=== PATIENT | male | born 1955 | race Caucasian/White ===

== ENCOUNTER 2017-07-12 07:00 | Outpatient (RCR) | payer OTHER, SELFPAY ==
--- NOTE | 2017-06-14 08:32 | HP.PTEVAL_ITS ---
Patient's Visit Information ESTRELLITA CARPENTER is a 61 year old M referred to Physical Therapy by SAMUEL Cervantes.MARTY with a diagnosis of Left TKR. Date of Evaluation: 06/14/17 Physical Therapist: Sarah Garcia - Visit Plan Frequency: 2-3x /Week Duration: 4 Weeks Plan: Focus on LE ROM and strength with functional mobility - Subjective Subjective: Left Total Knee Replacement 05/29/[address] López at [facility]. Went in as an outpatient. One story home with a basement- 3 stairs to enter with a BRAXTON- with no problems. Had home therapy at was doing the stairs as exercise. Back to driving- fully I before surgery. Still has problems getting his left sock on. Retired- likes to garden, bike on trials, Identified boat. Reports pain in the knee today is about a 3/10. Worst: 3/10 Agg: not icing on time, movement, exercises to make it straight. Dull and achy pain around the whole knee. Eases: ice, Tylenol Best: 0/10. Sleep: getting better but still challenging- starts out in the bed and then goes to the chair. Moves around during sleep. Pain radiates down the into the right dickson. PMHx/Meds: no changes. - Objective Posture: FH, RS, Increased kyphosis. Gait: slightly deviated- decreased stance on the left LE- decreased heel/toe pattern. Stairs: asc/desc 8 recip with 2 HR - and poor control. HR/TR: able. SLS: WS but unable to SLS. Observation: incision healing well- no s/s of infection. Steri-strips still intact. ROM:5- 90 degrees. Strength: Ankle: 5/5, Knee:4+/5, Hip: 4/5 - Goals Goal 1:: Patient will be I with HEP and progression Goal Time Frame: 4-6 Weeks Goal 2:: Patient will asc/desc 8 recip with 1 HR Goal Time Frame: 4-6 Weeks Goal 3:: Patient will ambulate >300 feet with a normalized gait pattern Goal Time Frame: 4-6 Weeks Goal 4:: Patient will demo 0-115 degrees Goal Time Frame: 4-6 Weeks - Rehabilitation Potential Physical Therapy Diagnosis: Patient presents with hypomobility- he has decreased ROM, strength and muscular endurance leading to poor posture and increased pain Rehabilitation Potential: Good - Anticipated Interventions Patient/Client Instruction: Educate patient on: Benefits of Fitness Program For the Purpose of:: To improve performance and independence with ADL's Therapeutic Exercise to Include: Strength training, Endurance training, Balance training, Agility training, Body mechanics, Postural training, Flexibilty training, Gait and locomotor training, Passive ROM, Active ROM, Dynamic Lumbar Stabilization For the Purpose of:: To improve muscle performance and motor function TENS: Yes Cryotherapy (ice pack, ice massage): Yes Thermo therapy (hot pack): Yes Ultrasound (thermal/non thermal): No Vasopneumatic device: Yes For the Purpose of:: To decrease pain, To decrease swelling/inflammation Thank you for the opportunity to evaluate your patient. For Medicare and Medicare HMO plans, please review the plan of care and approve it. It will need to be FAXED BACK to us at [phone] for Medicare purposes. Please let me know if there are questions or concerns regarding this plan of care. Physician Signature: Date:
--- NOTE | 2017-07-12 07:32 | HP.PTDCSUM_ITS ---
HP - PT D/C Summary It has been my pleasure to treat ESTRELLITA CARPENTER under orders from SAMUEL Cervantes, PA.MARTY for the diagnosis of Left TKR for a total of 13 visit(s) . Discharge Date: Please see the following information for a summary of their discharge status. - Subjective Subjective: Patient reports that he saw Dr. López yesterday who was happy with his ROM. He reports that he has no problems with ADL's. He thinks he may have to do the right knee. - Pain Left Knee Pain Intensity (Out of 10): 0 - Overall Improvement % Improvement: 90 - Objective Objective/Function: Posture: good. Gait: no deviation. Stairs: asc/desc 8 recip with no HR. SLS: 15 seconds. HR/TR: WNL. Palpation: not tender. rom:0- 122 degrees. Strength: 5/5 throughout - Goals Goal 1:: Patient will be I with HEP and progression Goal Progress: Goal Met Goal 2:: Patient will asc/desc 8 recip with 1 HR Goal Progress: Goal Met Goal 3:: Patient will ambulate >300 feet with a normalized gait pattern Goal Progress: Goal Met Goal 4:: Patient will demo 0-115 degrees Goal Progress: Goal Met - Plan Plan: Discharge - D/C Information If there are questions or concerns regarding this patient's physical therapy, please feel free to call me at [phone]. Thank you for the referral of this patient. Sincerely, Sarah Garcia
== END 2017-07-12 19:00 | disposition home or self-care (01) ==
LOC: PT 07:00
PROVIDERS: Family Provider Family Medicine; PCP Family Medicine; Visit Provider Physician Assistant Surgical
DX: Z96.652 Presence of left artificial knee joint (principal); Z47.1 Aftercare following joint replacement surgery
CPT/HCPCS: 97110; 97161; 97530

== ENCOUNTER → 2018-04-21 09:39 | Outpatient (CLI) | payer OTHER, SELFPAY ==
[2017-05-29 06:47] VITALS: BMI 41.7
[2018-04-21 12:34] LABS: Anion Gap 10 (5-15); BUN 20 mg/dL (7-18); BUN/Creat Ratio 19.2 RATIO (10-20); Calcium,Total 8.8 mg/dL (8.5-10.1); Chloride 103 mmol/L (98-107); Cholesterol 201 mg/dL (200); Creatinine, Serum 1.04 mg/dL (0.70-1.30); EST Glomerular Filtration Rate 77 mL/min (>60); Est Glom Filt Rate - Afr Amer 93 mL/min (>60); Glucose 92 mg/dL (74-106); High Density Lipoprotein 40 mg/dL; Potassium 4.7 mmol/L (3.5-5.1); Sodium Level 140 mmol/L (136-145); Triglycerides 165 mg/dL; Very Low Density Lipoprotein 33 mg/dL (5-40)
== END ==
PROVIDERS: Family Provider Family Medicine; PCP Family Medicine; Visit Provider Family Medicine
DX: I10 Essential (primary) hypertension (principal); Z12.5 Encounter for screening for malignant neoplasm of prostate
CPT/HCPCS: 36415; 80048; 80061; 84153; G0103

== ENCOUNTER → 2018-10-20 | Outpatient (CLI) | payer OTHER, SELFPAY ==
[2017-05-29 06:47] VITALS: BMI 41.7
[2018-10-20 12:35] LABS: Anion Gap 7 (5-15); BUN 23 mg/dL (7-18); BUN/Creat Ratio 20.5 RATIO (10-20); Chloride 103 mmol/L (98-107); Creatinine, Serum 1.12 mg/dL (0.70-1.30); EST Glomerular Filtration Rate 70 mL/min (>60); Est Glom Filt Rate - Afr Amer 85 mL/min (>60); Glucose 103 mg/dL (74-106); Potassium 4.2 mmol/L (3.5-5.1); Sodium Level 136 mmol/L (136-145)
== END | disposition home or self-care (01) ==
LOC: MFPLAB 09:53
PROVIDERS: Family Provider Family Medicine; PCP Family Medicine; Visit Provider Family Medicine
DX: I10 Essential (primary) hypertension (principal)
CPT/HCPCS: 36415; 80048

== ENCOUNTER → 2019-04-29 09:54 | Outpatient (CLI) | payer OTHER, SELFPAY ==
[2017-05-29 06:47] VITALS: BMI 41.7
[2019-04-29 13:06] LABS: Anion Gap 8 (5-15); BUN 24 mg/dL (7-18); BUN/Creat Ratio 20.3 RATIO (10-20); Calcium,Total 8.9 mg/dL (8.5-10.1); Chloride 103 mmol/L (98-107); Cholesterol 185 mg/dL (200); Creatinine, Serum 1.18 mg/dL (0.70-1.30); EST Glomerular Filtration Rate 66 mL/min (>60); Est Glom Filt Rate - Afr Amer 80 mL/min (>60); Glucose 98 mg/dL (74-106); High Density Lipoprotein 35 mg/dL; PSA,Total - Annual Screen 1.52 ng/mL (0.00-4.00); Potassium 4.3 mmol/L (3.5-5.1); Sodium Level 136 mmol/L (136-145); Triglycerides 168 mg/dL; Very Low Density Lipoprotein 34 mg/dL (5-40)
== END ==
PROVIDERS: Family Provider Family Medicine; PCP Family Medicine; Referring Provider Family Medicine; Visit Provider Family Medicine
DX: I10 Essential (primary) hypertension (principal); Z12.5 Encounter for screening for malignant neoplasm of prostate
CPT/HCPCS: 36415; 80048; 80061; 84153; G0103

== ENCOUNTER 2019-05-15 16:54 | Inpatient (IN) | payer OTHER, SELFPAY ==
[2019-05-15] VITALS (7 sets, daily range): BP systolic 107–151; BP diastolic 70–97; PULSE 71–85; RESP 14–20; TEMP 36.9–37; O2SAT 93–96; BMI 40.3; BMI 40.1
--- NOTE | 2019-05-15 17:45 | EKG12_ITS ---
Test Reason : SOB Blood Pressure : / mmHG Vent. Rate : 074 BPM Atrial Rate : 074 BPM P-R Int : 176 ms QRS Dur : 094 ms QT Int : 372 ms P-R-T Axes : 029 004 037 degrees QTc Int : 412 ms Normal sinus rhythm Normal ECG Confirmed by DAKOTA MARIANO, NAGA ([id number]), scientific editor RANJEET CRAIG ([id number]) on 05/18/2019 12:51:15 PM Referred By: PREM Confirmed By:NAGA DUNCAN MD
--- NOTE | 2019-05-15 17:48 | RAD_ITS ---
STUDY: X-RAY CHEST REASON FOR EXAM: Male, 63 years old. Chest pain and cough. TECHNIQUE: Single AP portable view of the chest. COMPARISON: None. FINDINGS: The lungs are hypoexpanded. There is minimal bibasilar atelectasis. There is no demonstrated pleural abnormality. Normal size heart. Normal mediastinum and isabella. Normal visualized pulmonary arteries. Normal visualized aortic arch and descending thoracic aorta. There are diffuse degenerative changes of the visualized thoracic spine. There is degenerative osteoarthritis of the bilateral shoulders. There is no demonstrated abnormality of the visualized soft tissue structures of the upper abdomen. RAD/Chest 1 View (Portable) IMPRESSION: Degenerative changes, as described above. No demonstrated acute cardiopulmonary process. Electronically Signed: Donell Griffith DO at 18:06 EST Tel [phone], Service support ,
--- NOTE | 2019-05-15 17:55 | ED.DCSUM_ITS ---
- ER Visit Summary Date of Service: 05/15/19 Chief Complaint: Shortness of breath History of Present Illness: The patient is a 63 M with shortness of breath x4 days. He has had a dry cough. He has shortness of breath that is worsened with ambulation. He tried albuterol at home. He scheduled to see Dr. Vargas on May 25. He states he is in the process of being worked up for possible asthma. He is scheduled to have pulmonary function test later this month. He is not a smoker. He denies chest pain. Denies fever. Denies other complaints. Physical Examination: Vitals are stable. Patient is afebrile. Alert no acute distress. HEENT exam is unremarkable. Neck is supple. Lungs are wheezing diffusely Heart is regular rate and rhythm. Abdomen is soft nontender nondistended. Extremities are unremarkable. Skin is warm and dry. No focal neurologic deficit. Remainder of exam is unremarkable. Emergency Department Course and Treatment: Patient was given albuterol, Atrovent aerosols. He was given Solu-Medrol IV. CBC shows white count 12.6. Chemistries unremarkable. Liver lipase are normal. Troponin is negative. Chest x-ray shows no acute process. Influenza negative. On reevaluation, patient continues to have diffuse wheezing. Will discuss with the hospitalist for admission. Disposition: Admission Impression: Dyspnea, reactive airway disease This note was generated with [employer] dictation software. It may contain incorrect words, spelling, and punctuation that were not noted in review of the chart prior to signing ED Disposition - Plan for ED Patient: Referrals: Marlene Hutchison MD [Primary Care Provider] -
[2019-05-15] MEDS: MethylPREDNISolone 125 MG/2 ML Vial IV (18:01)
[2019-05-15] MEDS: Ipratropium/Albuterol Sulfate 3 ML AMPUL.NEB INHALATION (18:06)
[2019-05-15] MEDS: Albuterol 2.5 MG/3 ML VIAL.NEB. INHALATION (18:06)
[2019-05-15 18:10] LABS: Absolute Lymphocyte Count 1.98 X10^3/uL (0.83-4.51); Absolute Neutrophil Count 7.9 X10^3/uL (2.0-7.7); Basophil# 0.05 X10^3/uL; Basophil% 0.4 % (0-1); Eosinophil# 1.76 X10^3/uL; Hematocrit 46.8 % (40-54); Hemoglobin 15.1 g/dL (13.0-16.5); Lymphocyte # 1.98 X10^3/ul (4.0); Lymphocyte % 15.7 % (19-41); Mean Corp Hgb Conc 32.3 g/dL (32-36); Mean Corpuscular Hgb 27.8 pg (27.0-32.0); Mean Corpuscular Volume 86.2 fL (80-94); Mean Platelet Vol. 10.7 fl (6.2-12.0); Monocyte# 0.83 X10^3/uL; Monocyte% 6.6 % (0-10); NRBC Flagged by Analyzer 0 % (0-5); Neutrophil # 7.91 X10^3/uL (2.7-7.7); Neutrophil % 62.7 % (47-70); Platelet Count 233 K/mm3 (150-450); Red Blood Count 5.43 M/mm3 (4.6-6.2); White Blood Count 12.6 K/mm3 (4.4-11.0)
[2019-05-15 18:21] LABS: ALB/GLOB Ratio 0.9 RATIO (0.9-2.4); AST(SGOT) 19 U/L (15-37); Alanine Aminotransfer ALT/SGPT 28 U/L (16-61); Albumin, Serum 3.8 g/dL (3.2-5.0); Alkaline Phosphatase 79 U/L (45-117); Anion Gap 7 (5-15); BUN 18 mg/dL (7-18); BUN/Creat Ratio 14.8 RATIO (10-20); Calcium,Total 9.1 mg/dL (8.5-10.1); Chloride 104 mmol/L (98-107); Creatinine, Serum 1.22 mg/dL (0.70-1.30); EST Glomerular Filtration Rate 63 mL/min (>60); Est Glom Filt Rate - Afr Amer 77 mL/min (>60); Estimated Creatinine Clearance 61.17 ml/min; Globulin 4.2 g/dL (2.2-4.2); Glucose 96 mg/dL (74-106); Lipase 118 U/L (73-393); Potassium 3.9 mmol/L (3.5-5.1); Sodium Level 139 mmol/L (136-145)
--- NOTE | 2019-05-15 19:15 | HP.PCM_ITS ---
Problem List (1) Asthma Status: Acute History of Present Illness Date of Admission: 05/15/19 Chief Complaint: sob The patient is a 63 year old M with a significant history of hypertension; sleep apnea and who is being worked-up for probable asthma presenting with 1 day history of persistent shortness of breath. Associated symptoms is dry cough. Patient has been wheezing for about 1 month. Patient follows up with Dr. Ndiaye, healthcare sales representative and is scheduled to have outpatient lung function test on May 25 2019 Past Medical History Medical History: Medical History (Last Updated 05/15/19 @ 20:20 by Jorge Joe MD) HTN (hypertension) I10 Allergies shellfish derived Allergy (Verified 05/15/19 16:57) Shortness of breath Home Medications: Ambulatory Orders Medication Instructions Recorded Meloxicam [Mobic] 15 mg PO DAILY 05/16/17 Metoprolol Succinate [Toprol Xl] 100 mg PO DAILY 05/16/17 Montelukast [Singulair] 10 mg PO DAILY PRN PRN 05/16/17 Omeprazole 20 mg PO DAILY 05/16/17 Pyridoxine HCl [Vitamin B-6] 100 mg PO DAILY PRN PRN 05/16/17 Ramipril [Altace] 5 mg PO QHS 05/16/17 hydroCHLOROthiazide 12.5 mg PO DAILY 05/16/17 [Hydrochlorothiazide] [place]-3 Fatty Acids [Fish Oil] 500 mg PO DAILY 05/15/19 Surgical History: appendectomy, - - Knee replacement; and elbow surgery Lives: Spouse/ Significant Other Smoking Status: Never smoker Alcohol: Occasional - *Family History Maternal History Items: Heart Disease - His mother had a pacemaker Paternal History Items: Cancer - His father had prostate cancer and lung cancer Review of Systems Constitutional: Reports: Anorexia. Denies: Chills, Fever, Weight Change HEENT: Denies: Head Aches, Sinus Congestion, Sinus Drainage Cardiovascular: Denies: Chest Pain, Palpitations Respiratory: Reports: Cough, Shortness of Breath, Wheezing. Denies: Sputum production Gastrointestinal: Denies: Abdominal Pain, Nausea, Vomiting Genitourinary: Denies: Dysuria Musculoskeletal: Denies: Joint Pain, Joint Tenderness Skin: Denies: Rash, Wounds Neurological: Denies: Numbness, Tingling, Focal weakness Psychiatric: Denies: Anxiety, Depression, Homicidal Ideations, Suicidal Ideations Hematologic/ Lymphatic: Denies: Easy Bruising, Easy Bleeding VTE Information - Inpt Only VTE Present on Admission: No VTE Mechan Device Prophylaxis: None VTE Pharm Prophylaxis ordered?: Yes Patient Problems: Active and Suspected Problems (Last Updated 05/15/19 @ 20:20 by Jorge Joe MD) Asthma (Acute) - Physical Exam Vitals/I&O's: Vital Signs Temp Pulse Resp BP Pulse Ox 98.6 F 82 14 138/84 H 96 05/15/19 19:03 05/15/19 19:03 05/15/19 19:03 05/15/19 19:03 05/15/19 19:03 Oxygen Flow Rate (L/min) 2 Oxygen Delivery Method Room Air Weight: 123.8 kg Body Mass Index (BMI) 40.3 General: Alert, Oriented x3, Cooperative HEENT: Atraumatic, PERRLA, EOMI, Normocephalic Neck: Supple, No JVD, Negative Carotid Bruits Lungs: No rales, Rhonchi, Wheezes Cardiovascular: Regular rate, No murmurs Abdomen: Bowel Sounds Present, Soft, Non Tender Extremities: No edema, Capillary Refill Less than 3 Seconds Skin: No rashes, No breakdown Musculoskeletal: No Tenderness to Palpation of Joints or Extremities Neurological: Cranial nerves II-XII grossly intact Psych/Mental Status: Normal Affect, Appropriate Microbiology Past 72 Hours 05/15/19 18:10 Mucosa - Nose Influenza Types A,B Direct FA (SEBASTIEN) - Final Laboratory Results 05/15/19 17:04: WBC 12.6 H, RBC 5.43, Hgb 15.1, Hct 46.8, MCV 86.2, MCH 27.8, MCHC 32.3, RDW Std Deviation 44.0 H, RDW Coeff of Gavino 14.0, Plt Count 233, MPV 10.7, Immature Gran % (Auto) 0.600, Neut % (Auto) 62.7, Lymph % (Auto) 15.7 L, Clayton % (Auto) 6.6, Eos % (Auto) 14.0 H, Baso % (Auto) 0.4, Absolute Neuts (auto) 7.9 H, Absolute Lymphs (auto) 1.98, Nucleated RBC % 0 05/15/19 17:04: Sodium 139, Potassium 3.9, Chloride 104, Carbon Dioxide 28.0, Anion Gap 7, BUN 18, Creatinine 1.22, Estim Creat Clear Calc 61.17, Est GFR (MDRD) Af Amer 77, Est GFR (MDRD) Non-Af 63, BUN/Creatinine Ratio 14.8, Glucose 96, Calcium 9.1, Total Bilirubin 0.50, AST 19, ALT 28, Alkaline Phosphatase 79, Troponin I < 0.015, Total Protein 8.0, Albumin 3.8, Globulin 4.2, Albumin/Globulin Ratio 0.9, Lipase 118 Assessment/Plan All Active Problems (Last Updated 05/15/19 @ 20:20 by Jorge Joe MD) Asthma (Acute) The patient is a 63 year old M with a significant history of hypertension; sleep apnea and who is being worked-up for probable asthma presenting with 1 day history of persistent shortness of breath; dry cough and wheezing consistent with likely acute exacerbation of asthma. Acute exacerbation of asthma CXR independently reviewed confirms no acute cardiopulmonary process Scheduled DuoNeb Albuterol as needed Received Solu-Medrol 125 mg IV at the emergency department. Continue patient on Solu-Medrol IV. Mucinex for cough Oxygen as needed Rapid influenza screen was negative. If patient develops fever or chills consider respiratory pathogen panel. Singular continued Monitor BMP and CBC Hypertension On presentation blood pressure was not within goal Hydrochlorothiazide and ramipril continued GERD Omeprazole continued Obstructive sleep apnea Home CPAP continued DVT Prophylaxis Subcutaneous Lovenox Code Visit Inpatient E&M: 22388 Init Hosp L3
[2019-05-15] MEDS: guaiFENesin 1,200 MG Tablet 1200 MG PO (20:56)
[2019-05-15] MEDS: Ramipril 5 MG Capsule PO (21:23)
[2019-05-15] MEDS: Acetaminophen 325 MG Tablet 650 MG PO (21:23)
[2019-05-15] MEDS: Montelukast 10 MG Tablet PO (21:23)
[2019-05-16] VITALS (15 sets, daily range): BP systolic 127–150; BP diastolic 70–81; PULSE 66–93; RESP 16–20; TEMP 36.4–36.7; O2SAT 91–99
[2019-05-16] MEDS: 0.9% Saline Lock 10 ML Syringe IV ×3 (05:38→21:22)
[2019-05-16] MEDS: Acetaminophen 325 MG Tablet 650 MG PO (05:38)
[2019-05-16] MEDS: Ipratropium/Albuterol Sulfate 3 ML AMPUL.NEB INHALATION ×4 (07:17→19:33)
[2019-05-16] MEDS: Pantoprazole Sodium 20 MG Tablet PO (08:29)
[2019-05-16] MEDS: Meloxicam 15 MG Tablet PO (08:29)
[2019-05-16] MEDS: guaiFENesin 1,200 MG Tablet 1200 MG PO ×2 (08:30→21:22)
[2019-05-16] MEDS: Enoxaparin 40 MG/0.4 ML Syringe SC (08:30)
[2019-05-16] MEDS: hydroCHLOROthiazide 12.5mg 12.5 MG PO (08:30)
[2019-05-16] MEDS: Metoprolol(XL)Succ 100 MG Tablet PO (08:30)
[2019-05-16 08:46] LABS: Absolute Lymphocyte Count 1.07 X10^3/uL (0.83-4.51); Absolute Neutrophil Count 13.6 X10^3/uL (2.0-7.7); Basophil# 0.02 X10^3/uL; Basophil% 0.1 % (0-1); Eosinophil# 0.06 X10^3/uL; Eosinophils% 0.4 % (0-5); Hematocrit 46.3 % (40-54); Hemoglobin 14.7 g/dL (13.0-16.5); Lymphocyte # 1.07 X10^3/ul (4.0); Lymphocyte % 7.1 % (19-41); Mean Corp Hgb Conc 31.7 g/dL (32-36); Mean Corpuscular Hgb 26.9 pg (27.0-32.0); Mean Corpuscular Volume 84.8 fL (80-94); Mean Platelet Vol. 10.5 fl (6.2-12.0); Monocyte% 0.7 % (0-10); NRBC Flagged by Analyzer 0 % (0-5); Neutrophil # 13.63 X10^3/uL (2.7-7.7); Neutrophil % 90.9 % (47-70); Platelet Count 248 K/mm3 (150-450); RBC Distribution Width CV 14.1 % (11.6-14.6); RBC Distribution Width SD 43.5 fl (35.1-43.9); Red Blood Count 5.46 M/mm3 (4.6-6.2)
[2019-05-16 09:08] LABS: Anion Gap 7 (5-15); BUN 20 mg/dL (7-18); BUN/Creat Ratio 16.8 RATIO (10-20); Calcium,Total 8.9 mg/dL (8.5-10.1); Chloride 101 mmol/L (98-107); Creatinine, Serum 1.19 mg/dL (0.70-1.30); EST Glomerular Filtration Rate 65 mL/min (>60); Est Glom Filt Rate - Afr Amer 79 mL/min (>60); Estimated Creatinine Clearance 62.71 ml/min; Glucose 199 mg/dL (74-106); Potassium 3.9 mmol/L (3.5-5.1); Sodium Level 134 mmol/L (136-145)
[2019-05-16] MEDS: Albuterol 2.5 MG/3 ML VIAL.NEB. INHALATION ×2 (10:00→17:23)
--- NOTE | 2019-05-16 15:07 | PCM.PN.HOSP ---
Patient Problems: Active and Suspected Problems (Last Updated 05/15/19 @ 20:20 by Jorge Joe MD) Asthma (Acute) Reason for Visit: The patient has history of asthma. Patient is still wheezing and has persistent cough although feels better than yesterday. Objective: Hemodynamically stable. No hypoxia or tachypnea. Patient walked around the nursing station but he persistent cough with bilateral lower rib pain due to coughing. Vitals/I&O's: Vital Signs Temp Pulse Resp BP Pulse Ox 98.1 F 81 17 150/74 H 91 05/16/19 08:23 05/16/19 11:05 05/16/19 11:05 05/16/19 08:23 05/16/19 08:42 Oxygen Flow Rate (L/min) 2 Oxygen Delivery Method Room Air Weight: 271 lb 6.224 oz Body Mass Index (BMI) 40.1 General: Alert, Oriented x3, Cooperative HEENT: Atraumatic, PERRLA, EOMI, Normocephalic Neck: Supple, No JVD, Negative Carotid Bruits Lungs: Diminished - Entry bilaterally diffusely diminished., Rhonchi, Wheezes Cardiovascular: Regular rate, Regular Rhythm, Normal S1, Normal S2, No murmurs Abdomen: Bowel Sounds Present, Soft, Non Tender, Non-Distended Extremities: No edema, Capillary Refill Less than 3 Seconds Skin: No rashes, No breakdown Musculoskeletal: No Tenderness to Palpation of Joints or Extremities Neurological: Cranial nerves II-XII grossly intact, Deep Tendon Reflexes 2+/4 and Symmetrical, Neuro grossly intact Psych/Mental Status: Normal Affect, Appropriate Microbiology Past 72 Hours 05/15/19 18:10 Mucosa - Nose Influenza Types A,B Direct FA (SEBASTIEN) - Final Laboratory Results 05/15/19 17:04: WBC 12.6 H, RBC 5.43, Hgb 15.1, Hct 46.8, MCV 86.2, MCH 27.8, MCHC 32.3, RDW Std Deviation 44.0 H, RDW Coeff of Gavino 14.0, Plt Count 233, MPV 10.7, Immature Gran % (Auto) 0.600, Neut % (Auto) 62.7, Lymph % (Auto) 15.7 L, [place] % (Auto) 6.6, Eos % (Auto) 14.0 H, Baso % (Auto) 0.4, Absolute Neuts (auto) 7.9 H, Absolute Lymphs (auto) 1.98, Nucleated RBC % 0 05/15/19 17:04: Sodium 139, Potassium 3.9, Chloride 104, Carbon Dioxide 28.0, Anion Gap 7, BUN 18, Creatinine 1.22, Estim Creat Clear Calc 61.17, Est GFR (MDRD) Af Amer 77, Est GFR (MDRD) Non-Af 63, BUN/Creatinine Ratio 14.8, Glucose 96, Calcium 9.1, Total Bilirubin 0.50, AST 19, ALT 28, Alkaline Phosphatase 79, Troponin I < 0.015, Total Protein 8.0, Albumin 3.8, Globulin 4.2, Albumin/Globulin Ratio 0.9, Lipase 118 05/16/19 08:25: WBC 15.0 H, RBC 5.46, Hgb 14.7, Hct 46.3, MCV 84.8, MCH 26.9 L, MCHC 31.7 L, RDW Std Deviation 43.5, RDW Coeff of Gavino 14.1, Plt Count 248, MPV 10.5, Immature Gran % (Auto) 0.800, Neut % (Auto) 90.9 H, Lymph % (Auto) 7.1 L, [place] % (Auto) 0.7, Eos % (Auto) 0.4, Baso % (Auto) 0.1, Absolute Neuts (auto) 13.6 H, Absolute Lymphs (auto) 1.07, Nucleated RBC % 0 05/16/19 08:25: Sodium 134 L, Potassium 3.9, Chloride 101, Carbon Dioxide 26.0, Anion Gap 7, BUN 20 H, Creatinine 1.19, Estim Creat Clear Calc 62.71, Est GFR (MDRD) Af Amer 79, Est GFR (MDRD) Non-Af 65, BUN/Creatinine Ratio 16.8, Glucose 199 H, Calcium 8.9 Current Medications Acetaminophen (Tylenol) 650 mg PO Q6H PRN PRN PRN Reason: Pain Score 1-3/Temp > 100.7 F Last Admin: 05/16/19 05:38 Dose: 650 mg Documented by: Albuterol Sulfate (Ventolin Aerosols) 2.5 mg INHALATION Q2H PRN PRN PRN Reason: Shortness of Breath/Wheezing Last Admin: 05/16/19 10:00 Dose: 2.5 mg Documented by: Albuterol/Ipratropium (Duoneb) 3 ml INHALATION Q4HWA.RT [facility] Last Admin: 05/16/19 07:17 Dose: 3 ml Documented by: Enoxaparin Sodium (Lovenox) 40 mg SC DAILY [facility] Last Admin: 05/16/19 08:30 Dose: 40 mg Documented by: Glucagon () 1 mg IM .X1 PRN PRN Reason: Hypoglycemia Guaifenesin (Mucinex) 1,200 mg PO BID [facility] Last Admin: 05/16/19 08:30 Dose: 1,200 mg Documented by: Hydrochlorothiazide () 12.5 mg PO DAILY [facility] Last Admin: 05/16/19 08:30 Dose: 12.5 mg Documented by: Dextrose (Dextrose 10%-Water) 250 mls @ 999 mls/hr IV .Q16M PRN; Protocol PRN Reason: HYPOGLYCEMIA Meloxicam (Mobic) 15 mg PO DAILY [facility] Last Admin: 05/16/19 08:29 Dose: 15 mg Documented by: Methylprednisolone (Solu-Medrol) 40 mg IV Q8 [facility] Last Admin: 05/16/19 05:38 Dose: 40 mg Documented by: Metoprolol Succinate (Toprol Xl (Beta Renetta)) 100 mg PO DAILY [facility] Last Admin: 05/16/19 08:30 Dose: 100 mg Documented by: Montelukast Sodium (Singulair) 10 mg PO DAILY PRN PRN PRN Reason: ALLERGIES Last Admin: 05/15/19 21:23 Dose: 10 mg Documented by: Ondansetron HCl (Zofran) 4 mg IV Q8H PRN PRN PRN Reason: NAUSEA/VOMITING Pantoprazole Sodium (Protonix) 20 mg PO DAILY [facility] Last Admin: 05/16/19 08:29 Dose: 20 mg Documented by: Ramipril (Altace) 5 mg PO QHS [facility] Last Admin: 05/15/19 21:23 Dose: 5 mg Documented by: Sodium Chloride () 10 - 40 ml IV UD PRN PRN Reason: SALINE FLUSH Last Admin: 05/16/19 05:38 Dose: 10 ml Documented by: Medical Necessity - Tobacco Use Smoking Status: Never smoker Tobacco Use: Non-smoker Assessment/Plan All Active Problems (Last Updated 01/03/20 @ 20:20 by Jorge Joe MD) Asthma (Acute) The patient is a 63 year old M with a significant history of hypertension; sleep apnea, follows Dr. Vargas was admitted for persistent shortness of breath, dry cough and wheezing consistent with asthma exacerbation 1. Acute exacerbation of asthma: Patient is being admitted in [facility] floor. On a scheduled DuoNeb, albuterol as needed, IV Solu-Medrol, Mucinex, incentive spirometry and chest physiotherapy. Singulair continued. Influenza test negative. Chest x-ray no acute finding. Hypertension: On HCTZ 12.5 mg daily, ramipril and metoprolol. Blood pressure is controlled. GERD Omeprazole continued Obstructive sleep apnea Home CPAP continued DVT Prophylaxis Subcutaneous Lovenox Clinical Impression(s) from Imaging Studies Chest X-Ray 05/15/19 17:48 IMPRESSION: Degenerative changes, as described above. No demonstrated acute cardiopulmonary process. Microbiology Past 72 Hours 05/15/19 18:10 Mucosa - Nose Influenza Types A,B Direct FA (SEBASTIEN) - Final Laboratory Results 05/15/19 17:04: WBC 12.6 H, RBC 5.43, Hgb 15.1, Hct 46.8, MCV 86.2, MCH 27.8, MCHC 32.3, RDW Std Deviation 44.0 H, RDW Coeff of Gavino 14.0, Plt Count 233, MPV 10.7, Immature Gran % (Auto) 0.600, Neut % (Auto) 62.7, Lymph % (Auto) 15.7 L, Glades % (Auto) 6.6, Eos % (Auto) 14.0 H, Baso % (Auto) 0.4, Absolute Neuts (auto) 7.9 H, Absolute Lymphs (auto) 1.98, Nucleated RBC % 0 05/15/19 17:04: Sodium 139, Potassium 3.9, Chloride 104, Carbon Dioxide 28.0, Anion Gap 7, BUN 18, Creatinine 1.22, Estim Creat Clear Calc 61.17, Est GFR (MDRD) Af Amer 77, Est GFR (MDRD) Non-Af 63, BUN/Creatinine Ratio 14.8, Glucose 96, Calcium 9.1, Total Bilirubin 0.50, AST 19, ALT 28, Alkaline Phosphatase 79, Troponin I < 0.015, Total Protein 8.0, Albumin 3.8, Globulin 4.2, Albumin/Globulin Ratio 0.9, Lipase 118 05/16/19 08:25: WBC 15.0 H, RBC 5.46, Hgb 14.7, Hct 46.3, MCV 84.8, MCH 26.9 L, MCHC 31.7 L, RDW Std Deviation 43.5, RDW Coeff of Gavino 14.1, Plt Count 248, MPV 10.5, Immature Gran % (Auto) 0.800, Neut % (Auto) 90.9 H, Lymph % (Auto) 7.1 L, Glades % (Auto) 0.7, Eos % (Auto) 0.4, Baso % (Auto) 0.1, Absolute Neuts (auto) 13.6 H, Absolute Lymphs (auto) 1.07, Nucleated RBC % 0 05/16/19 08:25: Sodium 134 L, Potassium 3.9, Chloride 101, Carbon Dioxide 26.0, Anion Gap 7, BUN 20 H, Creatinine 1.19, Estim Creat Clear Calc 62.71, Est GFR (MDRD) Af Amer 79, Est GFR (MDRD) Non-Af 65, BUN/Creatinine Ratio 16.8, Glucose 199 H, Calcium 8.9 Active Medications Acetaminophen (Tylenol) 650 mg PO Q6H PRN PRN PRN Reason: Pain Score 1-3/Temp > 100.7 F Last Admin: 05/16/19 05:38 Dose: 650 mg Documented by: Albuterol Sulfate (Ventolin Aerosols) 2.5 mg INHALATION Q2H PRN PRN PRN Reason: Shortness of Breath/Wheezing Last Admin: 05/16/19 10:00 Dose: 2.5 mg Documented by: Albuterol/Ipratropium (Duoneb) 3 ml INHALATION Q4HWA.RT [facility] Last Admin: 05/16/19 07:17 Dose: 3 ml Documented by: Enoxaparin Sodium (Lovenox) 40 mg SC DAILY [facility] Last Admin: 05/16/19 08:30 Dose: 40 mg Documented by: Glucagon () 1 mg IM .X1 PRN PRN Reason: Hypoglycemia Guaifenesin (Mucinex) 1,200 mg PO BID [facility] Last Admin: 05/16/19 08:30 Dose: 1,200 mg Documented by: Hydrochlorothiazide () 12.5 mg PO DAILY [facility] Last Admin: 05/16/19 08:30 Dose: 12.5 mg Documented by: Dextrose (Dextrose 10%-Water) 250 mls @ 999 mls/hr IV .Q16M PRN; Protocol PRN Reason: HYPOGLYCEMIA Meloxicam (Mobic) 15 mg PO DAILY [facility] Last Admin: 05/16/19 08:29 Dose: 15 mg Documented by: Methylprednisolone (Solu-Medrol) 40 mg IV Q8 [facility] Last Admin: 05/16/19 05:38 Dose: 40 mg Documented by: Metoprolol Succinate (Toprol Xl (Beta Renetta)) 100 mg PO DAILY [facility] Last Admin: 05/16/19 08:30 Dose: 100 mg Documented by: Montelukast Sodium (Singulair) 10 mg PO DAILY PRN PRN PRN Reason: ALLERGIES Last Admin: 05/15/19 21:23 Dose: 10 mg Documented by: Ondansetron HCl (Zofran) 4 mg IV Q8H PRN PRN PRN Reason: NAUSEA/VOMITING Pantoprazole Sodium (Protonix) 20 mg PO DAILY [facility] Last Admin: 05/16/19 08:29 Dose: 20 mg Documented by: Ramipril (Altace) 5 mg PO QHS [facility] Last Admin: 05/15/19 21:23 Dose: 5 mg Documented by: Sodium Chloride () 10 - 40 ml IV UD PRN PRN Reason: SALINE FLUSH Last Admin: 05/16/19 05:38 Dose: 10 ml Documented by: Code Visit Inpatient E&M: 87591 Subs Hosp L2
[2019-05-16] MEDS: Benzonatate 100 MG Capsule 200 MG PO ×2 (17:17→21:25)
[2019-05-16] MEDS: Montelukast 10 MG Tablet PO (17:19)
[2019-05-16] MEDS: Ramipril 5 MG Capsule PO (21:23)
[2019-05-17 03:00] VITALS: O2SAT 96
[2019-05-17 03:05] VITALS: BP 118/77; PULSE 59; RESP 16; TEMP 36.6; O2SAT 96
[2019-05-17 03:39] VITALS: PULSE 83; RESP 20
[2019-05-17] MEDS: Ipratropium/Albuterol Sulfate 3 ML AMPUL.NEB INHALATION (03:39)
[2019-05-17] MEDS: Benzonatate 100 MG Capsule 200 MG PO (05:33)
[2019-05-17 07:45] VITALS: O2SAT 95
[2019-05-17 08:30] VITALS: BP 137/76; PULSE 63; RESP 16; TEMP 36.4; O2SAT 95
[2019-05-17 09:51] VITALS: PULSE 63
[2019-05-17] MEDS: Pantoprazole Sodium 20 MG Tablet PO (09:51)
[2019-05-17] MEDS: Metoprolol(XL)Succ 100 MG Tablet PO (09:51)
[2019-05-17] MEDS: guaiFENesin 1,200 MG Tablet 1200 MG PO (09:51)
[2019-05-17] MEDS: hydroCHLOROthiazide 12.5mg 12.5 MG PO (09:51)
[2019-05-17] MEDS: Meloxicam 15 MG Tablet PO (09:51)
--- NOTE | 2019-05-17 11:27 | DCINST_ITS ---
- Discharge Diagnoses Current Active Problems: Current Active and Chronic Problems (Last Updated 05/15/19 @ 20:20 by Jorge Joe MD) Asthma (Acute) You will use the following diet at home:: Other - resume previous diet Your food should be the consistency of: Regular Your liquids should be the consistency of: Regular/Thin Discharge Activity: - - Avoid exposure to any strong smells such as bleach, cleaning products, strong colognes or perfumes, paint fumes and smoke of any kind. Avoid sudden exposure to cold air because this can cause bronchospasm. You may want to cover your mouth when you go outside in the winter. Avoid exposure to anyone who is sick with a cough or sore throat. Return to work on:: 05/20/19 May resume sexual activity in: No Restrictions Call your doctor if you observe: Fever of 101 or Higher, Shortness of breath, Dizziness, Fainting spells, Swelling in the ankles, Chest pain, Calf discomfort Instructions: Acute Bronchitis, Caring for Your Inhaler Additional Instructions: I have added another inhaler called Serevent. This contains a long acting bronchodilator and you will take 1 puff every 12 hours.......no more than this. This inhaler takes a few hours to kick in and should not be used if you are acutely short of breath. For wheezing and shortness of breath you will continue to use the Albuterol inhaler......2 puffs every 3-4 hours as needed for wheezing and shortness of breath. 2. IF the cough is productive do not suppress it......those secretions need to be coughed out and the cough is a good thing. If the cough is dry OR if the cough is keeping you up at night you can take 1-2 Tessalon Perles every 6-8 hours as needed. 3. Keep your appt with Dr. Vargas on the .....I will send Dr. Vargas and Dr. Hutchison a copy of the discharge summary I will be dictating to let them know what went on in the hospital. 4. You should take the Prednisone with food because sometimes it can irritate the stomach. Pending Tests on Discharge: none Allergies/Adverse Reactions: Allergies shellfish derived Allergy (Verified 05/15/19 16:57) Shortness of breath Medications to take at Discharge Meloxicam [Mobic] 15 mg PO DAILY 05/16/17 Metoprolol Succinate [Toprol Xl] 100 mg PO DAILY 05/16/17 Montelukast [Singulair] 10 mg PO DAILY PRN PRN 05/16/17 Omeprazole 20 mg PO DAILY 05/16/17 Pyridoxine HCl [Vitamin B-6] 100 mg PO DAILY PRN PRN 05/16/17 Ramipril [Altace] 5 mg PO QHS 05/16/17 hydroCHLOROthiazide [Hydrochlorothiazide] 12.5 mg PO DAILY 05/16/17 [place]-3 Fatty Acids [Fish Oil] 500 mg PO DAILY 05/15/19 Benzonatate [Tessalon Perle] 200 mg PO Q6H PRN PRN #28 cap 05/17/19 Guaifenesin [Mucinex] 1,200 mg PO BID #20 tab 05/17/19 Prednisone 10 mg PO UD #30 tab 05/17/19 Salmeterol [Serevent Diskus] 1 puff INHALATION Q12 #1 inhaler 05/17/19 The following prescriptions were given: Guaifenesin [Mucinex] 1,200 mg PO BID #20 tab Transmission Status: Pending to [id number] Prednisone 10 mg PO UD #30 tab Transmission Status: [facility]ending to [id number] Salmeterol [Serevent Diskus] 1 puff INHALATION Q12 #1 inhaler Transmission Status: [facility]ending [id number] Benzonatate [Tessalon Perle] 200 mg PO Q6H PRN PRN #28 cap PRN Reason: dry cough Prescription Printed Primary Care Physician: Marlene Hutchison MD [Primary Care Provider] - Please follow up with your Primary Care Physician in: 3-5 days Test Results: Test results from this visit will be discussed in further detail at your follow- up appointment, if applicable. Please Follow Up With: Bhavesh Vargas MD When: May 25...has an appt Proposed Discharge Date: 05/17/19
--- NOTE | 2019-05-17 11:38 | DS.PCM_ITS ---
Discharge Date and Diagnosis - Problem List Patient Problems: Active and Suspected Problems (Last Updated 05/15/19 @ 20:20 by Jorge Joe MD) Acute bronchospasm (Acute) Asthma (Suspected) Date of Admission: 05/15/19 Date of Discharge: 05/17/19 - Primary Discharge Diagnosis Active and Suspected Problems (Last Updated 05/15/19 @ 20:20 by Jorge Joe MD) Acute bronchospasm (Acute) Asthma (Suspected) - has never had PFT's Acute bronchitis - more likely than not viral - Secondary Discharge Diagnosis Hypertension Obesity GERD BIRD - uses CPAP Hospital Course and Treatment Imaging Results: Clinical Impression(s) from Imaging Studies Chest X-Ray 05/15/19 17:48 IMPRESSION: Degenerative changes, as described above. No demonstrated acute cardiopulmonary process. Electronically Signed: Donell Griffith DO at 18:06 EST Tel [phone], Service support , Microbiology 05/15/19 18:10 Mucosa - Nose Influenza Types A,B Direct FA (SEBASTIEN) - Final Negative none Operations: None Procedures: None Summary of Care Provided: The patient is a 63 year old M with a past medical history of hypertension, GERD, obstructive sleep apnea and obesity who presented to the emergency department at [facility] on 05/15/2019 planing of shortness of breath and cough. He has been seeing Dr. Vargas and is scheduled for PFT's on May 25. He is a life long non-smoker. Vital signs at presentation to the emergency room were temperature 98.6, pulse rate 85, blood pressure 151/97, respiratory rate 20 and he was 95% saturated on room air. White blood cell count was elevated at 12.6 and he had 14% eosinophils. Neutrophils were within normal limits. BMP was unremarkable. Troponin was less than 0.015. Chest x- ray showed no acute cardiopulmonary findings. He was admitted to the hospital with a diagnosis of acute exacerbation of presumed asthma. He was started on around the clock aerosolized bronchodilators, Mucinex and intravenous steroids. IS was ordered as well as PEP therapy. The cough is sometimes productive of green sputum but a sputum culture was not obtained. On 05/17/2019 the patient was afebrile. He had been afebrile for the duration of his hospital stay. He had made 26 laps around the floor on 05/16/2019 and tolerated this well. He denied shortness of breath. Pulse ox on room air was 95 to 97%. He was discharged home on a prednisone taper. He will continue to use his albuterol rescue inhaler for shortness of breath and wheezing. He was started on a Serevent inhaler and instructed to do 1 puff every 12 hours. He is going to follow-up with Dr. Hutchison in the office in 3 to 5 days and will keep his appointment with Dr. Vargas on May 25. With the increased eosinophils at admission I suspect the bronchospasm may be allergic in nature. He may need allergy testing. PHYSICAL EXAM: GENERAL: alert, oriented X 3, Cooperative, NAD ORAL: moist mucosa, no mucosal lesions NECK: No JVD, supple, trachea midline LUNGS: CTA, symmetric chest expansion, not tachypneic, no conversational dyspnea HEART: RRR, Normal S1 and S2, no rub, no gallop ABDOMEN: soft, NT, ND, BS present, no guarding with palpation EXTREMITIES: no edema, no cyanosis, no calf tenderness SKIN: No rashes, no breakdown NEUROLOGIC: no focal neurologic deficits PSYCH: appropriate, normal affect, pleasant This note was generated with Post[employer] dictation software. It may contain incorrect words, spelling, and punctuation that were not noted in checking the note before signing. Patient Problems: Active and Suspected Problems (Last Updated 05/15/19 @ 20:20 by Jorge Joe MD) Acute bronchospasm (Acute) Asthma (Suspected) - Physical Exam Vitals/I&O's: Vital Signs Temp Pulse Resp BP Pulse Ox 97.6 F L 63 16 137/76 H 95 05/17/19 08:30 05/17/19 09:51 05/17/19 08:30 05/17/19 08:30 05/17/19 08:30 Oxygen Flow Rate (L/min) 2 Oxygen Delivery Method Room Air Weight: 271 lb 6.224 oz Body Mass Index (BMI) 40.1 Intake and Output for Last 24 Hours 05/15/19 05/16/19 05/17/19 23:59 23:59 23:59 Intake Total 250 / 250 300 / 300 Balance 250 / 250 300 / 300 Microbiology Past 72 Hours 05/15/19 18:10 Mucosa - Nose Influenza Types A,B Direct FA (SEBASTIEN) - Final Current Medications Acetaminophen (Tylenol) 650 mg PO Q6H PRN PRN PRN Reason: Pain Score 1-3/Temp > 100.7 F Last Admin: 05/16/19 05:38 Dose: 650 mg Documented by: Albuterol Sulfate (Ventolin Aerosols) 2.5 mg INHALATION Q2H PRN PRN PRN Reason: Shortness of Breath/Wheezing Last Admin: 05/16/19 17:23 Dose: 2.5 mg Documented by: Albuterol/Ipratropium (Duoneb) 3 ml INHALATION Q4HWA.RT [facility] Last Admin: 05/17/19 07:45 Dose: Not Given Documented by: Benzonatate (Tessalon Perle) 200 mg PO TID [facility] Last Admin: 05/17/19 05:33 Dose: 200 mg Documented by: Enoxaparin Sodium (Lovenox) 40 mg SC DAILY [facility] Last Admin: 05/17/19 09:47 Dose: Not Given Documented by: Glucagon () 1 mg IM .X1 PRN PRN Reason: Hypoglycemia Guaifenesin (Mucinex) 1,200 mg PO BID [facility] Last Admin: 05/17/19 09:51 Dose: 1,200 mg Documented by: Hydrochlorothiazide () 12.5 mg PO DAILY [facility] Last Admin: 05/17/19 09:51 Dose: 12.5 mg Documented by: Dextrose (Dextrose 10%-Water) 250 mls @ 999 mls/hr IV .Q16M PRN; Protocol PRN Reason: HYPOGLYCEMIA Meloxicam (Mobic) 15 mg PO DAILY [facility] Last Admin: 05/17/19 09:51 Dose: 15 mg Documented by: Methylprednisolone (Solu-Medrol) 40 mg IV Q8 [facility] Last Admin: 05/17/19 05:33 Dose: 40 mg Documented by: Metoprolol Succinate (Toprol Xl (Beta Renetta)) 100 mg PO DAILY [facility] Last Admin: 05/17/19 09:51 Dose: 100 mg Documented by: Montelukast Sodium (Singulair) 10 mg PO DAILY PRN PRN PRN Reason: ALLERGIES Last Admin: 05/16/19 17:19 Dose: 10 mg Documented by: Ondansetron HCl (Zofran) 4 mg IV Q8H PRN PRN PRN Reason: NAUSEA/VOMITING Pantoprazole Sodium (Protonix) 20 mg PO DAILY [facility] Last Admin: 05/17/19 09:51 Dose: 20 mg Documented by: Ramipril (Altace) 5 mg PO QHS [facility] Last Admin: 05/16/19 21:23 Dose: 5 mg Documented by: Sodium Chloride () 10 - 40 ml IV UD PRN PRN Reason: SALINE FLUSH Last Admin: 05/16/19 21:22 Dose: 10 ml Documented by: Discharge Activity: - - Avoid exposure to any strong smells such as bleach, cleaning products, strong colognes or perfumes, paint fumes and smoke of any kind. Avoid sudden exposure to cold air because this can cause bronchospasm. You may want to cover your mouth when you go outside in the winter. Avoid exposure to anyone who is sick with a cough or sore throat. Return to work on:: 05/20/19 May resume sexual activity in: No Restrictions Call your doctor if you observe: Fever of 101 or Higher, Shortness of breath, Dizziness, Fainting spells, Swelling in the ankles, Chest pain, Calf discomfort Home Medications: Medications to take at Discharge Meloxicam [Mobic] 15 mg PO DAILY 05/16/17 Metoprolol Succinate [Toprol Xl] 100 mg PO DAILY 05/16/17 Montelukast [Singulair] 10 mg PO DAILY PRN PRN 05/16/17 Omeprazole 20 mg PO DAILY 05/16/17 Pyridoxine HCl [Vitamin B-6] 100 mg PO DAILY PRN PRN 05/16/17 Ramipril [Altace] 5 mg PO QHS 05/16/17 hydroCHLOROthiazide [Hydrochlorothiazide] 12.5 mg PO DAILY 05/16/17 [place]-3 Fatty Acids [Fish Oil] 500 mg PO DAILY 05/15/19 Benzonatate [Tessalon Perle] 200 mg PO Q6H PRN PRN #28 cap 05/17/19 Guaifenesin [Mucinex] 1,200 mg PO BID #20 tab 05/17/19 Prednisone 10 mg PO UD #30 tab 05/17/19 Salmeterol [Serevent Diskus] 1 puff INHALATION Q12 #1 inhaler 05/17/19 Following Prescrptions Were Given to Patient: Guaifenesin [Mucinex] 1,200 mg PO BID #20 tab Transmission Status: [id number] Prednisone 10 mg PO UD #30 tab Transmission Status: [id number] Salmeterol [Serevent Diskus] 1 puff INHALATION Q12 #1 inhaler Transmission Status: Pending to [id number] Benzonatate [Tessalon Perle] 200 mg PO Q6H PRN PRN #28 cap PRN Reason: dry cough Prescription Printed Primary Care Physician: Marlene Hutchison MD [Primary Care Provider] - Please follow up with your Primary Care Physician in: 3-5 days Please Follow Up With: Bhavesh Vargas MD When: May 25...has an appt Patient Instructions: Acute Bronchitis, Caring for Your Inhaler Minutes spent on discharge:: 30 Patient Condition:: Good Medical Necessity - Tobacco Use Smoking Status: Never smoker Tobacco Use: Non-smoker Meaningful Use Info Meaningful Use Diagnoses (Choose all that apply): None applicable Code Visit Inpatient E&M: 48122 Disch Hosp
== END 2019-05-17 12:47 | disposition home or self-care (01) | DRG 202 ==
LOC: ED 17:21 → MS3 20:29
PROVIDERS: Admitting Provider Hospitalist; Emergency Provider Emergency Medicine; Family Provider Family Medicine; PCP Family Medicine; Visit Provider Internal Medicine
DX: J20.8 Acute bronchitis due to other specified organisms (principal); Z68.41 Body mass index [BMI] 40.0-44.9, adult; J45.909 Unspecified asthma, uncomplicated; I10 Essential (primary) hypertension; G47.33 Obstructive sleep apnea (adult) (pediatric); E66.9 Obesity, unspecified; K21.9 Gastro-esophageal reflux disease without esophagitis
CPT/HCPCS: 36415; 71045; 80048; 80053; 83690; 84484; 85025; 87804; 93005; 94640; 94667; 94668; 99251; 99285; A4216; G0463

== ENCOUNTER → 2019-07-15 08:45 | Outpatient (CLI) | payer MEDICARE, OTHER, SELFPAY ==
[2019-05-15 20:22] VITALS: BMI 40.1
[2019-07-15 10:07] LABS: Absolute Lymphocyte Count 1.97 X10^3/uL (0.83-4.51); Basophil# 0.04 X10^3/uL; Basophil% 0.5 % (0-1); Eosinophils% 9.2 % (0-5); Hematocrit 45.6 % (40-54); Hemoglobin 14.7 g/dL (13.0-16.5); Lymphocyte # 1.97 X10^3/ul (4.0); Lymphocyte % 22.7 % (19-41); Mean Corp Hgb Conc 32.2 g/dL (32-36); Mean Corpuscular Hgb 27.7 pg (27.0-32.0); Mean Corpuscular Volume 85.9 fL (80-94); Mean Platelet Vol. 10.8 fl (6.2-12.0); Monocyte# 0.78 X10^3/uL; NRBC Flagged by Analyzer 0 % (0-5); Neutrophil # 5.03 X10^3/uL (2.7-7.7); Neutrophil % 57.8 % (47-70); Platelet Count 271 K/mm3 (150-450); RBC Distribution Width SD 43.5 fl (35.1-43.9); Red Blood Count 5.31 M/mm3 (4.6-6.2); White Blood Count 8.7 K/mm3 (4.4-11.0)
[2019-07-15 10:54] LABS: Hemoglobin A1c 5.5 % (4.2-6.3)
== END ==
PROVIDERS: PCP Family Medicine; Referring Provider Family Medicine; Visit Provider Family Medicine
DX: R73.9 Hyperglycemia, unspecified (principal); D72.1 Eosinophilia
CPT/HCPCS: 36415; 83036; 85025

== ENCOUNTER → 2019-11-04 10:52 | Outpatient (CLI) | payer MEDICARE, OTHER, SELFPAY ==
[2019-05-15 20:22] VITALS: BMI 40.1
[2019-11-04 13:03] LABS: Anion Gap 8 (5-15); BUN 26 mg/dL (7-18); BUN/Creat Ratio 24.8 RATIO (10-20); Calcium,Total 9.2 mg/dL (8.5-10.1); Chloride 106 mmol/L (98-107); Creatinine, Serum 1.05 mg/dL (0.70-1.30); EST Glomerular Filtration Rate 75 mL/min (>60); Est Glom Filt Rate - Afr Amer 91 mL/min (>60); Glucose 96 mg/dL (74-106); Potassium 4.4 mmol/L (3.5-5.1); Sodium Level 140 mmol/L (136-145)
== END ==
PROVIDERS: PCP Family Medicine; Visit Provider Family Medicine
DX: Z00.00 Encounter for general adult medical examination without abnormal findings (principal); I10 Essential (primary) hypertension
CPT/HCPCS: 36415; 80048

== ENCOUNTER → 2020-02-18 | Outpatient (CLI) | payer MEDICARE, OTHER, SELFPAY ==
[2019-05-15 20:22] VITALS: BMI 40.1
== END | disposition home or self-care (01) ==
LOC: LABSPEC 08:05
PROVIDERS: PCP Family Medicine; Referring Provider Family Medicine; Visit Provider Family Medicine
DX: R19.7 Diarrhea, unspecified (principal)
CPT/HCPCS: 87493

== ENCOUNTER → 2020-03-17 | Outpatient (CLI) | payer MEDICARE, OTHER, SELFPAY ==
[2019-05-15 20:22] VITALS: BMI 40.1
== END | disposition home or self-care (01) ==
PROVIDERS: PCP Family Medicine; Visit Provider Family Medicine
DX: R19.7 Diarrhea, unspecified (principal)
CPT/HCPCS: 87493; 87506

== ENCOUNTER → 2020-04-27 15:29 | Outpatient (CLI) | payer MEDICARE, OTHER, SELFPAY ==
[2019-05-15 20:22] VITALS: BMI 40.1
[2020-04-27 18:26] LABS: Anion Gap 5 (5-15); BUN 23 mg/dL (7-18); BUN/Creat Ratio 20.7 RATIO (10-20); Calcium,Total 9.1 mg/dL (8.5-10.1); Chloride 103 mmol/L (98-107); Creatinine, Serum 1.11 mg/dL (0.70-1.30); EST Glomerular Filtration Rate 71 mL/min (>60); Est Glom Filt Rate - Afr Amer 85 mL/min (>60); Glucose 81 mg/dL (74-106); Sodium Level 136 mmol/L (136-145)
== END ==
PROVIDERS: PCP Family Medicine; Referring Provider Family Medicine; Visit Provider Family Medicine
DX: I10 Essential (primary) hypertension (principal)
CPT/HCPCS: 36415; 80048

== ENCOUNTER → 2020-10-28 10:11 | Outpatient (CLI) | payer MEDICARE, OTHER, SELFPAY ==
[2019-05-15 20:22] VITALS: BMI 40.1
[2020-10-28 12:44] LABS: Microalbumin,Random Urine 5.4 mg/L (NO RANGE EST.); Microalbumin:Creatinine Ratio 5.5 mg/g CRE (<30 mg/g CRE)
[2020-10-28 12:53] LABS: AST(SGOT) 23 U/L (15-37); Alanine Aminotransfer ALT/SGPT 24 U/L (16-61); Anion Gap 7 (5-15); BUN 18 mg/dL (7-18); BUN/Creat Ratio 16.1 RATIO (10-20); Calcium,Total 8.8 mg/dL (8.5-10.1); Chloride 103 mmol/L (98-107); Cholesterol 174 mg/dL (200); Creatinine, Serum 1.12 mg/dL (0.70-1.30); EST Glomerular Filtration Rate 70 mL/min (>60); Est Glom Filt Rate - Afr Amer 84 mL/min (>60); Glucose 91 mg/dL (74-106); High Density Lipoprotein 35 mg/dL; PSA,Total - Annual Screen 2.09 ng/mL (0.00-4.00); Sodium Level 138 mmol/L (136-145); Triglycerides 109 mg/dL; Very Low Density Lipoprotein 22 mg/dL (5-40)
== END ==
PROVIDERS: PCP Family Medicine; Referring Provider Family Medicine; Visit Provider Family Medicine
DX: Z00.00 Encounter for general adult medical examination without abnormal findings (principal); I10 Essential (primary) hypertension; E78.00 Pure hypercholesterolemia, unspecified; Z12.5 Encounter for screening for malignant neoplasm of prostate
CPT/HCPCS: 36415; 80048; 80061; 82043; 82570; 84153; 84450; 84460; G0103

== ENCOUNTER → 2020-11-10 15:54 | Outpatient (CLI) | payer MEDICARE, OTHER, SELFPAY ==
[2019-05-15 20:22] VITALS: BMI 40.1
== END ==
PROVIDERS: PCP Family Medicine; Visit Provider Family Medicine
DX: N39.0 Urinary tract infection, site not specified (principal)
CPT/HCPCS: 87086

== ENCOUNTER 2021-07-07 09:30 | Outpatient (RCR) | payer MEDICARE, OTHER, SELFPAY ==
--- NOTE | 2021-06-06 09:43 | HP.PTEVAL_ITS ---
Patient's Visit Information ESTRELLITA CARPENTER is a 65 year old M referred to Physical Therapy by Dr. Jamal López MD with a diagnosis of SCIATICA,RIGHT SIDE, INTERVERTEBRAL DISC DEGENERATION,LUMABR,LEFT KNEE OA. Date of Evaluation: 06/06/21 Physical Therapist: Estrellita Vazquez, PT, Cert MDT, OCS - Visit Plan Frequency: 2-3x /Week Duration: 4-6 Weeks Plan: PT INTERVETIONS FOR DLS ,LE STRENGTHENING -HIPS ,LUMBAR ROM AND POSTURAL EX'S-MODALTIES PRN - Subjective This 65 y/o physical therapy presents physical therapy with sciatica right side. Patient has had sciatica issues for many years and ~ 3 months ago symptoms became worse . Patient had no mechanism of injury etiology. Patient see DR Stanley Butterfield did MRI lumbar DDD, Protruding disc, stenosis. Recommended surgery but patient ,but patient wants to try therapy and wants to hold on epidural injection. Seen Dr López recommended PT and meloxicam. Also ,needs right TKR recommended DR López and also has h/0 left TKA 2017. Since MEDS doing much better. Seen chiropractors with manipulation. Aggravating factors bending ,lifting ,sitting and walking/standing. Alleviating factors ice ,MEDS. Patient pain affects sleeping. Patient did have paresthesia/tingling but better,. Coughing/sneezing -. Bowel/bladder-. No abnormal night pain. Patient pain affects QOL and ADLS' . SOCAIL: . VOCATION: retired [employer]. - Pain Right Back Pain Intensity (Out of 10): 2 Pain Intensity Range: 10 - Objective POSTURE: mild forward posture. GAIT: antalgic gait mild forward posture dec rease stance time. PALAPTION: unremarkable. NEURO: denies paresthesia/tingling ,reflexes L3-4,L4-5 .L5-S 11/3. PROM HIP: 5 degrees. AROM: 5-130 supine degrees right. MMT: quads/hams 4/5,hip flexion /abduction 3+/5,ankle 4/5. FLEXABLITY: hams WFL. LUMBAR ROM: flexion WFL ,extension min loss, side glides min - Special Tests L/S Slump test left side: Negative L/S Slump test right side: Negative L/S Left Straight Leg Raise: Negative L/S Right Straight Leg Raise: Negative Lumbar Standing: Flexion - Mechanical Response: No effect Lumbar Standing: Flexion - Symptoms During Testing: No effect Lumbar Standing: Flexion - Symptoms After Testing: No effect Lumbar Standing: Extension - Mechanical Response: No effect Lumbar Standing: Extension - Symptoms During Testing: No effect Lumbar Standing: Extension - Symptoms After Testing: No effect Lumbar Standing: Right Side Glides - Mechanical Response: No effect Lumbar Standing: Right Side [place] - Symptoms During Testing: No effect Lumbar Standing: Right Side [place] - Symptoms After Testing: No effect Lumbar Standing: Left Side [place] - Mechanical Response: No effect Lumbar Standing: Left Side [place] - Symptoms During Testing: No effect Lumbar Standing: Left Side [place] - Symptoms After Testing: No effect - Balance/Special Test Scores Oswestry Low Back Score: 15 - Goals Goal 1:: I with HEP for Lumbar Goal Time Frame: 4-6 Weeks Goal 2:: Patient to improve posture ADLS' Goal Time Frame: 4-6 Weeks Goal 3:: Patient to demonstrate 50% improvement with decrease back pain to improve function Goal Time Frame: 4-6 Weeks Goal 4:: Patient improve function of recovery to ability to put on shoes Goal Time Frame: 4-6 Weeks Goal 5:: Patient to improve hip strength 4-/5 to improve function gait Goal Time Frame: 4-6 Weeks Goal 6:: Patient improve back owestry by 5 points or > to improve QOL and function Goal Time Frame: 4-6 Weeks - Rehabilitation Potential Physical Therapy Diagnosis: Patient has right lumbar with radicular symptoms right leg and DJD with patient had MRI showing DDD and stenosis affects function and ADLS' along with candidate for TKA per MD thus will benefit from skilled PT for lumbar Rehabilitation Potential: Good - Anticipated Interventions Patient/Client Instruction: Educate patient on: Condition, Plan of Care For the Purpose of:: To decrease pain, To increase ROM, To increase oxygenation perfusion, To improve ability to perform ADL's, To increase tolerance to activity/condition/position, To improve ability of physical actions for home/community/work/leisure, To improve health of tissue, To decrease soft tissue restriction, To increase flexibility/ROM, To prevent re-injury Therapeutic Exercise to Include: Strength training, Power training, Body mechanics, Postural training, Flexibilty training, Active ROM, Dynamic Lumbar Stabilization For the Purpose of:: To decrease pain, To increase ROM, To improve muscle performance and motor function, To improve ability to perform ADL's, To increase tolerance to activity/condition/position, To improve ability of physical actions for home/community/work/leisure, To improve health of tissue, To decrease soft tissue restriction, To increase flexibility/ROM, To prevent re-injury TENS: Yes IF ES: Yes Cryotherapy (ice pack, ice massage): Yes Thermo therapy (hot pack): Yes Ultrasound (thermal/non thermal): Yes For the Purpose of:: To decrease pain, To improve nutrient delivery to tissue, To increase oxygenation perfusion, To improve health of tissue, To decrease soft tissue restriction Thank you for the opportunity to evaluate your patient. For Medicare and Medicare HMO plans, please review the plan of care and approve it. It will need to be FAXED BACK to us at [phone] for Medicare purposes. For Medicare only, by signing this I certify the plan of care. Please let me know if there are questions or concerns regarding this plan of care. Physician Signature: Date:
--- NOTE | 2021-07-07 09:55 | HP.PTDCSUM ---
It has been my pleasure to treat ESTRELLITA CARPENTER referred by Dr. Jamal López MD, with the diagnosis of SCIATICA,RIGHT SIDE, INTERVERTEBRAL DISC DEGENERATION,LUMABR,LEFT KNEE OA for a total of 10 visit(s). Discharge Date: Please see the following information for a summary of their discharge status. Subjective: Doing okay but more sore Right Back Pain Intensity (Out of 10): 4 % Improvement: 70 Objective/Function: POSTURE: mild forward posture. GAIT: reciprocal pattern. MMT: quads/hams/hip/ankle 4/5. AROM: supine knee flexion 0-135 degrees supine flexion. LUMBAR ROM: flexion min loss ,extension min loss .side glides min loss Goal 1:: I with HEP for Lumbar Goal Progress: Progressing Goal 2:: Patient to improve posture ADLS' Goal Progress: Progressing Goal 3:: Patient to demonstrate 50% improvement with decrease back pain to improve function Goal 4:: Patient improve function of recovery to ability to put on shoes Goal 5:: Patient to improve hip strength 4-/5 to improve function gait(goal met) Goal Progress: Progressing Goal 6:: Patient improve back owestry by 5 points or > to improve QOL and function Goal Progress: Progressing Plan: PT INTERVETIONS FOR DLS ,LE STRENGTHENING -HIPS ,LUMBAR ROM AND POSTURAL EX'S-MODALTIES PRN If there are questions or concerns regarding this patient's physical therapy, please feel free to call me at [phone]. Thank you for the referral of this patient. Sincerely, Estrellita Vazquez, PT, Cert MDT, OCS Balance/Gait/Functional tests - Balance/Special Test Scores Oswestry Low Back Score: 7
== END 2021-07-07 19:00 | disposition home or self-care (01) ==
LOC: PT 09:30
PROVIDERS: PCP Family Medicine; Referring Provider Specialist; Visit Provider Specialist
DX: M54.31 Sciatica, right side (principal); M51.36 Other intervertebral disc degeneration, lumbar region; M17.11 Unilateral primary osteoarthritis, right knee
CPT/HCPCS: 97110; 97162

== ENCOUNTER → 2021-11-08 | Outpatient (CLI) | payer MEDICARE, OTHER, SELFPAY ==
[2021-11-08 12:54] LABS: AST(SGOT) 19 U/L (15-37); Alanine Aminotransfer ALT/SGPT 24 U/L (16-61); Anion Gap 8 (5-15); BUN 27 mg/dL (7-18); BUN/Creat Ratio 19.9 RATIO (10-20); Calcium,Total 8.9 mg/dL (8.5-10.1); Chloride 105 mmol/L (98-107); Cholesterol 180 mg/dL (200); Creatinine, Serum 1.36 mg/dL (0.70-1.30); EST Glomerular Filtration Rate 56 mL/min (>60); Est Glom Filt Rate - Afr Amer 67 mL/min (>60); Glucose 101 mg/dL (74-106); High Density Lipoprotein 38 mg/dL; Potassium 4.4 mmol/L (3.5-5.1); Sodium Level 137 mmol/L (136-145); Triglycerides 185 mg/dL; Very Low Density Lipoprotein 37 mg/dL (5-40)
[2021-11-08 16:51] LABS: Microalbumin,Random Urine 10.3 mg/L (NO RANGE EST.); Microalbumin:Creatinine Ratio 6.9 mg/g CRE (<30 mg/g CRE)
== END | disposition home or self-care (01) ==
LOC: MFPLAB 10:26
PROVIDERS: PCP Family Medicine; Visit Provider Family Medicine
DX: Z00.00 Encounter for general adult medical examination without abnormal findings (principal); E78.00 Pure hypercholesterolemia, unspecified; I10 Essential (primary) hypertension; Z12.5 Encounter for screening for malignant neoplasm of prostate
CPT/HCPCS: 36415; 80048; 80061; 82043; 82570; 84153; 84450; 84460; G0103

== ENCOUNTER → 2022-05-01 | Outpatient (CLI) | payer MEDICARE, OTHER, SELFPAY ==
[2022-05-01 12:43] LABS: Anion Gap 5 (5-15); BUN 22 mg/dL (7-18); BUN/Creat Ratio 19.5 RATIO (10-20); Calcium,Total 9.4 mg/dL (8.5-10.1); Chloride 103 mmol/L (98-107); Creatinine, Serum 1.13 mg/dL (0.70-1.30); EST Glomerular Filtration Rate 69 mL/min (>60); Est Glom Filt Rate - Afr Amer 83 mL/min (>60); Glucose 99 mg/dL (74-106); Potassium 4.7 mmol/L (3.5-5.1); Sodium Level 136 mmol/L (136-145)
== END | disposition home or self-care (01) ==
LOC: MFPLAB 10:18
PROVIDERS: PCP Family Medicine; Referring Provider Family Medicine; Visit Provider Family Medicine
DX: I10 Essential (primary) hypertension (principal)
CPT/HCPCS: 36415; 80048

== ENCOUNTER → 2022-11-27 | Outpatient (CLI) | payer MEDICARE, OTHER, SELFPAY ==
[2022-11-27 19:13] LABS: AST(SGOT) 27 U/L (15-37); Alanine Aminotransfer ALT/SGPT 27 U/L (16-61); Cholesterol 174 mg/dL (200); High Density Lipoprotein 34 mg/dL; PSA,Total - Annual Screen 1.76 ng/mL (0.00-4.00); Triglycerides 183 mg/dL; Very Low Density Lipoprotein 37 mg/dL (5-40)
== END | disposition home or self-care (01) ==
LOC: MTLAB 16:39
PROVIDERS: PCP Family Medicine; Referring Provider Family Medicine; Visit Provider Family Medicine
DX: Z00.00 Encounter for general adult medical examination without abnormal findings (principal); E78.00 Pure hypercholesterolemia, unspecified; Z12.5 Encounter for screening for malignant neoplasm of prostate
CPT/HCPCS: 36415; 80061; 84153; 84450; 84460; G0103

== ENCOUNTER 2022-12-05 09:00 | Outpatient (RCR) | payer MEDICARE, OTHER, SELFPAY ==
--- NOTE | 2022-10-31 09:45 | HP.PTEVAL_ITS ---
Patient's Visit Information ESTRELLITA CARPENTER is a 67 year old M referred to Physical Therapy by Dr. Tanvir Santoyo DPM with a diagnosis of LEFT ACHILLES TENDENITIS. Date of Evaluation: 10/31/22 Physical Therapist: Estrellita Vazquez, PT, Cert MDT, OCS - Visit Plan Frequency: 3x /Week Duration: 6 Weeks Plan: PT INTERVETIONS MANUAL THERAPY STM/STICK CALF ,HAWK ACHILLES ,STRETCHING CALF,ECCENTRICS G-S AND US - Subjective This 67 y/o male presents to physical therapy for left Achilles tendinitis. Patient has had tendonitis ~ 4 months . Patient has h/o Achilles tendonitis years ago. Patient seen DR awais Moreira . Patient had t-[id number] pain located Achilles . Patient had symptoms worse with walking/standing . Alleviating factors ice and medication. Denies paresthesia/tingling. Patient was provided over counter orthotics. Patient condition affects QOL and function . Patient goals to decrease pain. Patient symptoms progressively worse. I patient does het better possible MRI. SOCIAL: . VOCATION: retired - Objective POSTURE: normal arch. GAIT: reciprocal pattern. PALPATION: tender Achilles tendon , calf. NEURO: intact. AROM: dorsiflexion 5 degrees ,plantar flexion 65 degrees ,inversion 40 degrees ,eversion 5 degrees. MMT: ankle anterior tibialis ,posterior tibialis ,peroneus ,G-S 4/5. FLEXABLITY: G-S mild tight - Balance/Special Test Scores Lower Extremity Functional Score: 43 - Goals Goal 1:: I with HEP for ankle Goal Time Frame: 4-6 Weeks Goal 2:: Patient to normalize gait. Goal Time Frame: 4-6 Weeks Goal 3:: Patient to demonstrate 60 % improvement with decrease pain and improved function Goal Time Frame: 4-6 Weeks Goal 4:: Patient to improve LFES score by 5-10 points to improve function/gait. Goal Time Frame: 4-6 Weeks Goal 5:: Patient minimalize tenderness calf and Achilles to improve gait. Goal Time Frame: 4-6 Weeks - Rehabilitation Potential Physical Therapy Diagnosis: This patient has left Achilles tendinosis with pain Achilles , tightness calf ,tenderness Achilles tendon thus impairs gait and function. Rehabilitation Potential: Good - Anticipated Interventions Patient/Client Instruction: Educate patient on: Condition, Plan of Care For the Purpose of:: To decrease pain, To decrease swelling/inflammation, To increase oxygenation perfusion, To increase tolerance to activity/condition/position, To improve ability of physical actions for home/community/work/leisure, To improve health of tissue, To decrease soft tissue restriction, To increase flexibility/ROM, To improve endurance, To improve balance, To reduce risk of recurrence, To prevent re-injury Therapeutic Exercise to Include: Strength training, Endurance training, Balance training, Flexibilty training, Active ROM For the Purpose of:: To decrease pain, To increase ROM, To improve muscle performance and motor function, To increase tolerance to activity/condition/position, To improve performance and independence with ADL's, To improve ability of physical actions for home/community/work/leisure, To improve health of tissue, To decrease soft tissue restriction, To increase flexibility/ROM, To improve balance, To prevent re-injury Manual Therapy Techniques to Include: Mobilization, Soft tissue mobilization Comment: G-S For the Purpose of:: To decrease pain, To increase ROM, To improve nutrient delivery to tissue, To increase oxygenation perfusion, To improve health of tissue, To decrease soft tissue restriction Thank you for the opportunity to evaluate your patient. For Medicare and Medicare HMO plans, please review the plan of care and approve it. It will need to be FAXED BACK to us at [phone] for Medicare purposes. For Medicare only, by signing this I certify the plan of care. Please let me know if there are questions or concerns regarding this plan of care. Physician Signature:____ Date:
--- NOTE | 2022-12-05 09:42 | HP.PTDCSUM ---
Discharge Summary D/C summary: It has been my pleasure to treat ESTRELLITA CARPENTER referred by Dr. Tanvir Santoyo DPAlejandro, with the diagnosis of LEFT ACHILLES TENDENITIS for a total of 8 visit(s). Discharge Date: Please see the following information for a summary of their discharge status. Subjective Subjective: Doing better ready for d/c Pain Foot: Pain Intensity (Out of 10): 0 Overall Improvement % Improvement: 90 Objective Objective/Function: POSTURE: normal arch. GAIT: reciprocal pattern. PALPATION: unremarkable NEURO: intact. AROM: dorsiflexion 5 degrees ,plantar flexion 65 degrees ,inversion 40 degrees ,eversion 5 degrees. MMT: ankle anterior tibialis ,posterior tibialis ,peroneus ,G-S 4/5. FLEXABLITY: G-S mild tight Goals Goal 1:: I with HEP for ankle Goal Progress: Goal Met Goal 2:: Patient to normalize gait. Goal Progress: Goal Met Goal 3:: Patient to demonstrate 60 % improvement with decrease pain and improved function Goal Progress: Goal Met Goal 4:: Patient to improve LFES score by 5-10 points to improve function/gait. Goal Progress: Goal Met Goal 5:: Patient minimalize tenderness calf and Achilles to improve gait. Plan Plan: D/C D/C Information d/c sentence: If there are questions or concerns regarding this patient's physical therapy, please feel free to call me at [phone]. Thank you for the referral of this patient. Sincerely, Estrellita Vazquez, PT, Cert MDT, OCS Balance/Gait/Functional tests Balance/Special Test Scores Lower Extremity Functional Score: 63
== END 2022-12-05 19:00 | disposition home or self-care (01) ==
LOC: PT 09:00
PROVIDERS: PCP Family Medicine; Referring Provider Student in an Organized Health Care Education/Training Program; Visit Provider Student in an Organized Health Care Education/Training Program
DX: M76.62 Achilles tendinitis, left leg (principal)
CPT/HCPCS: 97035; 97140; 97162; 97530

== ENCOUNTER → 2023-05-31 | Outpatient (CLI) | payer MEDICARE, OTHER, SELFPAY ==
[2023-05-31 16:09] LABS: AST(SGOT) 28 U/L (15-37); Alanine Aminotransfer ALT/SGPT 32 U/L (16-61); Anion Gap 7 (5-15); BUN 25 mg/dL (7-18); BUN/Creat Ratio 21.2 RATIO (10-20); Calcium,Total 9.2 mg/dL (8.5-10.1); Chloride 103 mmol/L (98-107); Cholesterol 185 mg/dL (200); Creatinine, Serum 1.18 mg/dL (0.70-1.30); EST Glomerular Filtration Rate 65 mL/min (>60); Est Glom Filt Rate - Afr Amer 79 mL/min (>60); Glucose 92 mg/dL (74-106); High Density Lipoprotein 36 mg/dL; Potassium 4.4 mmol/L (3.5-5.1); Sodium Level 136 mmol/L (136-145); Thyroid Stim Hormone (TSH) 1.38 uIU/mL (0.358-3.74); Triglycerides 220 mg/dL; Very Low Density Lipoprotein 44 mg/dL (5-40)
[2023-05-31 16:25] LABS: Microalbumin,Random Urine 7.8 mg/L (NO RANGE EST.); Microalbumin:Creatinine Ratio 9.1 mg/g CRE (<30 mg/g CRE)
== END | disposition home or self-care (01) ==
LOC: MFPLAB 11:25
PROVIDERS: PCP Family Medicine; Visit Provider Family Medicine
DX: E78.00 Pure hypercholesterolemia, unspecified (principal); I10 Essential (primary) hypertension
CPT/HCPCS: 36415; 80048; 80061; 82043; 82570; 84443; 84450; 84460

== ENCOUNTER → 2024-06-01 | Outpatient (CLI) | payer MEDICARE, OTHER, SELFPAY ==
[2024-06-01 12:18] LABS: Protein, Urine (Random) 7.2 mg/dL (<11.9); Protein:Creat Ratio 181 mg/g CRE (0-200)
[2024-06-01 12:40] LABS: Anion Gap 4 (5-15); BUN 13 mg/dL (7-18); BUN/Creat Ratio 12.1 RATIO (10-20); Calcium,Total 9.5 mg/dL (8.5-10.1); Chloride 103 mmol/L (98-107); Cholesterol 168 mg/dL (200); Creatinine, Serum 1.07 mg/dL (0.70-1.30); EST Glomerular Filtration Rate 73 mL/min (>60); Est Glom Filt Rate - Afr Amer 88 mL/min (>60); Glucose 108 mg/dL (74-106); High Density Lipoprotein 47 mg/dL; Potassium 4.1 mmol/L (3.5-5.1); Sodium Level 136 mmol/L (136-145); Triglycerides 116 mg/dL; Very Low Density Lipoprotein 23 mg/dL (5-40)
[2024-06-01 14:05] LABS: Hemoglobin A1c 5.1 % (3.8-5.6)
== END | disposition home or self-care (01) ==
LOC: MTLAB 10:15
PROVIDERS: PCP Family Medicine; Referring Provider Family Medicine; Visit Provider Family Medicine
DX: I10 Essential (primary) hypertension (principal); E66.01 Morbid (severe) obesity due to excess calories
CPT/HCPCS: 80048; 80061; 82570; 83036; 84156; 84443

== ENCOUNTER → 2024-10-15 | Outpatient (CLI) | payer MEDICARE, OTHER, SELFPAY ==
--- NOTE | 2024-10-15 07:45 | EKG12_ITS ---
Test Reason : PREOP Blood Pressure : */* mmHG Vent. Rate : 51 BPM Atrial Rate : 51 BPM P-R Int : 214 ms QRS Dur : 92 ms QT Int : 398 ms P-R-T Axes : 10 -10 13 degrees QTcB Int : 366 ms Sinus bradycardia with 1st degree A-V block Minimal voltage criteria for LVH, may be normal variant Borderline ECG Confirmed by JAYCE MARIANO, GEOFF ([id number]), food editor RANJEET CRAIG ([id number]) on 10/19/2024 7:02:00 AM Referred By: Jamal López Confirmed By: GEOFF EDUARDO MD
[2024-10-15 08:47] LABS: Absolute Lymphocyte Count 2.18 X10^3/uL (0.83-4.51); Absolute Neutrophil Count 6.6 X10^3/uL (2.0-7.7); Basophil# 0.05 X10^3/uL; Basophil% 0.5 % (0-1); Eosinophil# 0.93 X10^3/uL; Eosinophils% 8.6 % (0-5); Hematocrit 44.4 % (40-54); Hemoglobin 14.6 g/dL (13.0-16.5); Lymphocyte # 2.18 X10^3/ul (0.83-4.51); Lymphocyte % 20.2 % (19-41); Mean Corp Hgb Conc 32.9 g/dL (32-36); Mean Corpuscular Hgb 27.1 pg (27.0-32.0); Mean Corpuscular Volume 82.4 fL (80-94); Mean Platelet Vol. 10.1 fl (6.2-12.0); Monocyte# 1.02 X10^3/uL; Monocyte% 9.4 % (0-10); NRBC Flagged by Analyzer 0 % (0-5); Neutrophil # 6.56 X10^3/uL (2.7-7.7); Neutrophil % 60.7 % (47-70); Platelet Count 262 K/mm3 (150-450); RBC Distribution Width CV 14.4 % (11.6-14.6); RBC Distribution Width SD 43.2 fl (35.1-43.9); Red Blood Count 5.39 M/mm3 (4.6-6.2); White Blood Count 10.8 K/mm3 (4.4-11.0)
[2024-10-15 09:12] LABS: Albumin, Serum 3.6 g/dL (3.4-4.8); Anion Gap 13 (5-15); BUN 28 mg/dL (4-19); BUN/Creat Ratio 25.8 RATIO (10-20); Calcium,Total 9.1 mg/dL (7.6-11.0); Carbon Dioxide 20.6 mmol/L (21.0-32.0); Chloride 100 mmol/L (98-108); Creatinine, Serum 1.08 mg/dL (0.70-1.20); EST Glomerular Filtration Rate 74 (>60); Glucose 93 mg/dL (70-99); Potassium 4.7 mmol/L (3.3-5.1); Sodium Level 133 mmol/L (133-145)
== END | disposition home or self-care (01) ==
PROVIDERS: PCP Family Medicine; Referring Provider Specialist; Visit Provider Specialist
DX: Z01.810 Encounter for preprocedural cardiovascular examination (principal); Z01.818 Encounter for other preprocedural examination; M17.11 Unilateral primary osteoarthritis, right knee; I10 Essential (primary) hypertension; L40.9 Psoriasis, unspecified; K21.9 Gastro-esophageal reflux disease without esophagitis
CPT/HCPCS: 36415; 80048; 82040; 85025; 93005

== ENCOUNTER → 2024-10-26 | Outpatient (CLI) | payer MEDICARE, OTHER, SELFPAY ==
--- NOTE | 2024-10-26 18:27 | CT_ITS ---
PROCEDURE: EXTREMITY LOWER WITHOUT CONTRA 10/26/2024 REASON FOR EXAM: RT KNEE, LIBERTY, PRE OP, UNILATERAL PRIMARY OSTEOARTHRITIS TECHNIQUE: EXTREMITY LOWER WITHOUT CONTRA Coronal and Sagittal reconstruction series were provided. CONTRAST: None One or more dose reduction techniques were used (e.g., Automated exposure control, adjustment of the mA and/or kV according to patient size, use of iterative reconstruction technique). RADIATION DOSE SUMMARY: CTDlvol: 1619.8 MGy COMPARISON: None FINDINGS: Bones: There is severe tricompartment osteoarthritis of the knee with joint space narrowing, subcortical cyst formation, and marginal osteophytes. There is a moderate joint effusion. No acute fracture or dislocation is seen. Vascular calcifications are noted. There is no soft tissue mass or adenopathy. Prostate calcifications are visible. CT/Extremity Lower without Contra IMPRESSION: There is severe tricompartment osteoarthritis of the knee with joint space narr owing, subcortical cyst formation, and marginal osteophytes. There is a moderate joint effusion. Reading Location: [facility]
== END | disposition home or self-care (01) ==
LOC: CT 18:26
PROVIDERS: PCP Family Medicine; Referring Provider Specialist; Visit Provider Specialist
DX: Z01.818 Encounter for other preprocedural examination (principal); M17.11 Unilateral primary osteoarthritis, right knee
CPT/HCPCS: 73700

== ENCOUNTER → 2024-11-26 | Outpatient (CLI) | payer MEDICARE, OTHER, SELFPAY ==
--- NOTE | 2024-11-26 13:59 | VDLE_ITS ---
Reason For Study Reason For Study: Pain RIGHT LEFT GSV is normal. CFV is compressible, spontaneous, phasic, competent, CFV is compressible, spontaneous, phasic, competent and demonstrates normal augmentation. and demonstrates normal augmentation. FV is compressible, spontaneous, phasic, competent and demonstrates normal augmentation. POP V is compressible, spontaneous, phasic, competent and demonstrates normal augmentation. T/P Trunk is compressible. PTV is compressible. RT PerV is compressible. Procedure This is a venous duplex using B-mode, color flow and spectral Doppler. Exam performed in department. A preliminary report was called and/or faxed to [facility]. VL/Venous Duplex US, Unilateral Interpretation Summary Deep veins of the right lower extremity are patent and compressible segmentally . There is no evidence of right lower extremity deep vein thrombosis. The right great saphenous vein appears patent a nd compressible segmentally. Ordering Physician: Jayne Messer Referring Physician: Bob Colvin Performed By: Carly Mckee RVT
== END | disposition home or self-care (01) ==
LOC: CVS 13:55
PROVIDERS: PCP Family Medicine
DX: M79.661 Pain in right lower leg (principal)
CPT/HCPCS: 93971

== ENCOUNTER → 2024-12-29 | Outpatient (CLI) | payer MEDICARE, OTHER, SELFPAY ==
[2024-12-29 11:01] LABS: AST(SGOT) 17 U/L (<=37); Alanine Aminotransfer ALT/SGPT 10 U/L (<=46); Albumin, Serum 4.0 g/dL (3.4-4.8); Alkaline Phosphatase 84 U/L (40-129); Anion Gap 11 (5-15); BUN 25 mg/dL (4-19); BUN/Creat Ratio 26.8 RATIO (10-20); Calcium,Total 9.4 mg/dL (7.6-11.0); Carbon Dioxide 22.9 mmol/L (21.0-32.0); Chloride 104 mmol/L (98-108); Cholesterol 156 mg/dL (<=200); Globulin 3.1 g/dL (2.2-4.2); Glucose 91 mg/dL (70-99); Low Density Lipoprotein Calc. 96 mg/dL; PSA,Total - Annual Screen 1.98 ng/mL (0.02-4.00); Potassium 4.4 mmol/L (3.3-5.1); Triglycerides 101 mg/dL; Very Low Density Lipoprotein 20 mg/dL (5-40); cholesterol:hdl ratio screen 3.90
== END | disposition home or self-care (01) ==
LOC: MFPLAB 08:02
PROVIDERS: PCP Family Medicine; Referring Provider Family Medicine; Visit Provider Family Medicine
DX: Z00.00 Encounter for general adult medical examination without abnormal findings (principal); I10 Essential (primary) hypertension
CPT/HCPCS: 36415; 80053; 80061; 84153; G0103